=== PATIENT | female | born 1990 | race Caucasian/White ===

== ENCOUNTER 2019-03-03 22:44 | Emergency (ER) | payer OTHER ==
[2019-03-03 23:04] VITALS: BMI 39.4
--- NOTE | 2019-03-03 23:19 | PDOC ---
History of Present Illness - General Chief Complaint: Vaginal Bleeding Stated Complaint: VAGINAL BLEEDING Time Seen by Provider: 03/03/19 23:17 History Source: Patient Exam Limitations: No Limitations - History of Present Illness Initial Comments: 03/03/19 23:21 Nydia Palm is a 28yF w PMHx HTN, sciatica, presenting w vaginal bleeding. At 930p today, had 4 positive tests w subsequent sudden onset heavy vaginal bleeding, bright red blood, soaking 1 pad over last hour. Associated mild constant suprapubic pain. Has been having light spotting last 3 weeks. Last intercourse 2d ago. Last 6 years ago, complications of heavy vaginal bleeding, placenta previa, 35wk delivery for preeclampsia. Denies fever, headache, SOB, nausea/vomiting, chest pain, urinary/ bowel movement changes. Past History - Past Medical History Allergies/Adverse Reactions: Allergies Allergy/AdvReac Type Severity Reaction Status Date / Time No Known Allergies Allergy Verified 03/03/19 23:00 Home Medications: Ambulatory Orders Labetalol HCl [Normodyne -] 100 mg PO HS 03/04/19 Labetalol HCl [Normodyne -] 200 mg PO AM 03/04/19 Asthma: No Cancer: No Cardiac Disorders: No COPD: No Diabetes: No HTN: Yes Seizures: No Thyroid Disease: No - Reproductive History (#): 1 Para: 0 Cervical CA: No Dysfunctional Uterine Bleeding: No Ectopic : No Endometrial CA: No Polycystic Ovaries: No Therapeutic (s) & number: No Tubal Ligation: No Spontaneous : 0 - Immunization History Immunization Up to Date: Yes - Psycho Social/Smoking Cessation Hx Smoking Status: No Smoking History: Never smoked Have you smoked in the past 12 months: No Number of Cigarettes Smoked Daily: 0 Information on smoking cessation initiated: No Hx Alcohol Use: No Drug/Substance Use Hx: No Substance Use Type: None Hx Substance Use Treatment: No Review of Systems - Review of Systems Constitutional: No: Chills, Fever HEENTM: No: Eye Pain, Nose Pain, Throat Pain, Mouth Pain Respiratory: No: Cough, Shortness of Breath Cardiac (ROS): No: Chest Pain, Palpitations, Syncope ABD/GI: No: Abdominal Distended, Constipated, Diarrhea, Nausea, Vomiting : No: Burning, Dysuria, Discharge, Flank Pain Musculoskeletal: No: Back Pain, Joint Pain, Muscle Pain, Neck Pain Integumentary: No: Bruising, Flushing, Lesions Neurological: No: Headache, Seizure, Tingling, Tremors Psychiatric: No: Anxiety, Depression, Stressors Endocrine: No: Excessive Sweating, Flushing, Intolerance to Cold, Intolerance to Heat Hematologic/Lymphatic: No: Anemia *Physical Exam - Vital Signs Last Vital Signs Temp Pulse Resp BP Pulse Ox 99.5 F 80 17 152/92 99 03/03/19 23:00 03/03/19 23:00 03/03/19 23:00 03/03/19 23:00 03/03/19 23:00 - Physical Exam General Appearance: Yes: Nourished, Appropriately Dressed. No: Apparent Distress HEENT: positive: EOMI, KERON, Normal Voice, Hearing Grossly Normal. negative: Scleral Icterus (R), Scleral Icterus (L), Nasal Congestion, Rhinorrhea Respiratory/Chest: positive: Lungs Clear, Normal Breath Sounds. negative: Chest Tender, Respiratory Distress, Crackles, Rales, Rhonchi, Stridor, Wheezing Cardiovascular: positive: Regular Rhythm, Regular Rate, S1, S2. negative: Edema , Murmur Female Pelvic Exam: positive: normal external exam, cervical os closed ( anteverted), vaginal bleeding (gross bright red blood in vaginal vault). negative: CMT, discharge, lesions, adnexal tenderness Gastrointestinal/Abdominal: positive: Normal Bowel Sounds, Tender (mild tenderness suprapubic), Flat, Soft. negative: Organomegaly, Distended, Guarding , Rebound Musculoskeletal: negative: CVA Tenderness (R), CVA Tenderness (L) Extremity: positive: Normal Capillary Refill Integumentary: positive: Normal Color Neurologic: positive: Fully Oriented, Alert, Normal Response, Responsive. negative: Sensory Deficit, Confused, Disoriented ED Treatment Course - LABORATORY CBC & Chemistry Diagram: 03/04/19 00:05 03/04/19 00:05 Medical Decision Making - Medical Decision Making 03/04/19 00:04 CBC CMP b-quant, UA, coags TVUS shows single IUS w estimated gestational age 5w6d in lower uterine segment. No cardiac motion, misshapen gestational sac concerning for miscarriage. 3.5cm R ovarian cyst. No significant free fluid. Pelvic exam showed gross blood in vaginal vault, no active bleeding from cervix , closed anteverted cervix, no CMT/OMT b-quant 3600, WBC 13, no bacteria on UA given tylenol for pain --- Nydia Palm is a 28yF w PMHx HTN, sciatica, presenting w vaginal bleeding likely d/t threatened vs early . TVUS showed single IUS w estimated gestational age 5w6d in lower uterine segment, no cardiac motion, misshapen gestational sac concerning for miscarriage. Beta-quant 3600, slightly elevated WBC 13, hgb normal. Hemodynamically stable. Given tylenol for pain. D/c home with obgyn f/u Discharge - Discharge Information Problems reviewed: Yes Clinical Impression/Diagnosis: Vaginal bleeding during Condition: Good Disposition: HOME - Admission No - Follow up/Referral Referrals: Greg Aviles MD [Primary Care Provider] - - Patient Discharge Instructions Patient Printed Discharge Instructions: DI for Vaginal Bleeding During Additional Instructions: You were seen for vaginal bleeding. Your labs and imaging show that you are . You were given medication for your pain Please make an appointment with your OBGYN doctor regarding this visit. Come back to the ED if you are having worsening cramping, bleeding, or fever. - Post Discharge Activity
--- NOTE | 2019-03-04 00:27 | PDOC ---
Documentation entered by Omar Coreas SCRIBE, acting as scribe for Emi Fischer DO. Emi Fischer DO: This documentation has been prepared by the Joss lucia Xhesika, SCRIBE, under my direction and personally reviewed by me in its entirety. I confirm that the documentation accurately reflects all work, treatment, procedures, and medical decision making performed by me. Attending Attestation - Resident Resident Name: OtiliaAnkush - ED Attending Attestation I have performed the following: I have examined & evaluated the patient, The case was reviewed & discussed with the resident, I agree w/resident's findings & plan, Exceptions are as noted - HPI HPI: 03/04/19 00:04 The patient is a 28 year old female, (1st -placenta previa, preeclampsia delivered at 35 weeks) with a significant PMH of HTN and sciatica who presents to the emergency department for 3 weeks of vaginal spotting with heavy vaginal bleeding today at around 9:30pm. Patient notes she endorses associated suprapubic tenderness. Patient notes she took an at home test tonight and it was positive. Patient notes she used 1 pad since 9:30pm. Patient notes she last had intercourse 2 days ago. Pt denies any history of STD. The patient denies chest pain, shortness of breath, headache and dizziness. Denies fever, chills, cough, nausea, vomiting, diarrhea and constipation. Denies dysuria, frequency, urgency. Allergies: NKDA - Physicial Exam PE: 03/04/19 00:05 GENERAL: Awake, alert, and fully oriented, in no acute distress LUNGS: Breath sounds equal, clear to auscultation bilaterally. No wheezes, and no crackles HEART: Regular rate and rhythm, normal S1 and S2, no murmurs, rubs or gallops ABDOMEN: +obese. Soft, nontender, normoactive bowel sounds. No guarding, no rebound. No masses PELVIC: See resident exam EXTREMITIES: Normal range of motion, no edema. No clubbing or cyanosis. No cords, erythema, or tenderness NEUROLOGICAL: Cranial nerves II through XII grossly intact. Normal speech, normal gait SKIN: Warm, Dry, normal turgor, no rashes or lesions noted. - Medical Decision Making 03/04/19 00:25 I, Dr. Emi Fischer, DO, attest that this document has been prepared under my direction and personally reviewed by me in its entirety. I further attest, that it accurately reflects all work, treatment, procedures and medical decision -making performed by me. a/p: 28yo who took 3 home preg tests today and then developed vag bleeding around 930p tonight -states she was crying after taking hte tests and then the bleeding started -has been spotting for the week -pt states hx of irreg bleeding -will send labs, beta hcg, type and screen -will send for ultrasound -os closed on pelvic exam -will monitor and reassess -concern for threatened ab and bleeding in the first trimester 03/04/19 00:55 prelim read of ultrasound - 5w6d no fhr as of now pending labs 03/04/19 00:55 prior type and screen is A+ 03/04/19 01:22 ultrasound shows iup without fhr, 3.5cm ovarian cyst, no torsion 03/04/19 01:36 elevated wbc from first trimester preg no uti 03/04/19 01:55 labs reviewed beta hcg pending type and screen pending
[2019-03-04 01:17] LABS: EOS % 2.3 % (0-4.5); HEMOGLOBIN 12.2 GM/dL (10.7-15.3); LYMPH % 29.4 % (8-40); MCH 28.4 pg (25.7-33.7); MONO % 7.1 % (3.8-10.2); NEUT % 60.2 % (42.8-82.8); PLATELET COUNT 465 K/MM3 (134-434); RBC 4.31 M/mm3 (3.60-5.2); RDW 15.4 % (11.6-15.6); WHITE BLOOD COUNT 13.8 K/mm3 (4.0-10.0)
[2019-03-04 01:27] LABS: EPI CELLS 2.5 /HPF (0-5/HPF); HYALINE CASTS 0 /lpf (0-8); PH,URINE 7.5 (5.0-8.0); URINE APPEARANCE CLEAR; URINE BACTERIA 14.3 /hpf (NEGATIVE); URINE BILIRUBIN NEGATIVE (NEGATIVE); URINE COLOR RED; URINE GLUCOSE (UA) NEGATIVE (NEGATIVE); URINE KETONE NEGATIVE (NEGATIVE); URINE LEUK ESTERASE TRACE (NEGATIVE); URINE NITRITE NEGATIVE (NEGATIVE); URINE PROTEIN NEGATIVE (NEGATIVE); URINE RBC 516 /hpf (0-4); URINE UROBILINOGEN 0.2 mg/dL (0.2-1.0); URINE WBC 1 /hpf (0-5)
[2019-03-04 01:31] LABS: INR 0.97 (0.83-1.09); PROTHROMBIN TIME (PATIENT) 11.5 SEC (9.7-13.0)
[2019-03-04 01:34] LABS: ACTIVATED PTT 29.4 SECONDS (25.2-36.5)
[2019-03-04 01:47] LABS: ALBUMIN 3.7 g/dl (3.4-5.0); BILIRUBIN,TOTAL 0.2 mg/dL (0.2-1); BLOOD UREA NITROGEN 8.2 mg/dL (7-18); CALCIUM 9.5 mg/dL (8.5-10.1); CREATININE 0.8 mg/dL (0.55-1.3); POTASSIUM 4.1 mmol/L (3.5-5.1); TOT PROT 7.5 g/dl (6.4-8.2)
[2019-03-04] MEDS ORDERED: ACETAMINOPHEN 1000 MG/100 ML VIAL (NON FORMULARY) IVPB ONE (03:06)
[2019-03-04] MEDS ORDERED: ACETAMINOPHEN INJECTION 100 ML IVPB ONE (03:26)
[2019-03-04 04:16] VITALS: BP 141/93; PULSE 84; TEMP 98.2
== END 2019-03-04 04:13 | disposition home or self-care (01) ==
LOC: JER 22:44
PROC: 3E033NZ Introduction of Analgesics, Hypnotics, Sedatives into Peripheral Vein, Percutaneous Approach (ICD-10-PCS; principal; 2019-03-03)
DX: O26.891 Other specified pregnancy related conditions, first trimester (principal); O20.8 Other hemorrhage in early pregnancy; O34.81 Maternal care for other abnormalities of pelvic organs, first trimester; N83.291 Other ovarian cyst, right side; Z3A.01 Less than 8 weeks gestation of pregnancy; I10 Essential (primary) hypertension; Z86.69 Personal history of other diseases of the nervous system and sense organs
CPT/HCPCS: 36415; 76817-TC; 80053; 81003; 84702; 85025; 85610; 85730; 86850; 86900; 86901; 87086; 99283-25; J0131

== ENCOUNTER 2020-06-19 16:06 | Emergency (ER) | payer OTHER ==
[2020-06-19] MEDS ORDERED: ACETAMINOPHEN 500 MG TABLET (FP) PO ONE (16:44)
[2020-06-19 16:50] VITALS: BP 145/103; PULSE 91; TEMP 99.3; BMI 42.5
[2020-06-19] MEDS ORDERED: ACETAMINOPHEN 500 MG TABLET (FP) ONE (17:15)
[2020-06-19 17:59] LABS: HCG,QUALITATIVE URINE Negative; PH,URINE 6.5 (5.0-8.0); URINE APPEARANCE CLEAR; URINE BILIRUBIN NEGATIVE (NEGATIVE); URINE COLOR YELLOW; URINE GLUCOSE (UA) NEGATIVE (NEGATIVE); URINE KETONE NEGATIVE (NEGATIVE); URINE LEUK ESTERASE NEGATIVE (NEGATIVE); URINE NITRITE NEGATIVE (NEGATIVE); URINE PROTEIN NEGATIVE (NEGATIVE); URINE UROBILINOGEN 0.2 mg/dL (0.2-1.0)
== END 2020-06-19 22:30 | disposition home or self-care (01) ==
LOC: JER 16:06
DX: N83.292 Other ovarian cyst, left side (principal)
CPT/HCPCS: 74176-TC; 76830-TC; 81003; 84703; 87086; 99285-25

== ENCOUNTER 2020-10-04 11:51 | Emergency (ER) | payer OTHER ==
[2020-10-05 10:08] LABS: SARS-CoV-2 NAA Not Detected (Not Detected)
== END 2020-10-04 12:25 | disposition home or self-care (01) ==
LOC: JVIRT 11:51
DX: Z11.52 Encounter for screening for COVID-19 (principal)
CPT/HCPCS: C9803; G2251-GT; Q3014-GT; U0003; U0005

== ENCOUNTER 2023-02-23 04:24 | Day surgery (SDC) | payer OTHER ==
[2023-02-18 16:12] VITALS: BMI 42.0
[2023-02-23] MEDS ORDERED: ceFAZolin SODIUM 1 GM VIAL IVPB ONE (08:41)
[2023-02-23] MEDS ORDERED: MIDAZOLAM HCL 2 MG/2 ML SINGLE DOSE VIAL ONE (08:53)
[2023-02-23] MEDS ORDERED: PROPOFOL 20 ML ONE (08:53)
[2023-02-23] MEDS ORDERED: LIDOCAINE HCL/PF 2% SDV 5ML VIAL ONE (08:53)
[2023-02-23] MEDS ORDERED: PROMETHAZINE HCL 25 MG/1 ML VIAL IVPB PRN (08:57)
[2023-02-23] MEDS ORDERED: oxyCODONE HCL 5 MG TABLET PO PRN (08:57)
[2023-02-23] MEDS ORDERED: ONDANSETRON 4 MG/2 ML VIAL IVPUSH PRN (08:57)
[2023-02-23] MEDS ORDERED: ACETAMINOPHEN 325 MG TABLET (FP) PO PRN (09:08)
[2023-02-23] MEDS ORDERED: IBUPROFEN 400 MG TABLET (FP) PO PRN (09:08)
[2023-02-23] MEDS ORDERED: KETOROLAC TROMETHAMINE 30 MG/1 ML VIAL ONE (09:18)
[2023-02-23] MEDS ORDERED: ONDANSETRON 4 MG/2 ML VIAL ONE (09:18)
[2023-02-23] MEDS ORDERED: DEXAMETHASONE SOD PHOSPHATE 4 MG/1 ML VIAL ONE (09:18)
[2023-02-23] MEDS ORDERED: METOCLOPRAMIDE HCL INJECTION 10 MG/2 ML VIAL ONE (09:20)
[2023-02-23 12:21] VITALS: TEMP 97.8
[2023-02-23 14:28] VITALS: BP 112/62; PULSE 75; RESP 20
== END 2023-02-23 14:31 | disposition home or self-care (01) ==
LOC: JASU-SURG 04:24
PROVIDERS: ATTEND Obstetrics & Gynecology
PROC: 0UB98ZZ Excision of Uterus, Via Natural or Artificial Opening Endoscopic (ICD-10-PCS; principal; 2023-02-23 09:00)
DX: N92.0 Excessive and frequent menstruation with regular cycle (principal); N84.0 Polyp of corpus uteri
CPT/HCPCS: 81025; 82962; 88305-TC; 94760